=== PATIENT | male | born 1960 | race Caucasian/White ===

== ENCOUNTER 2018-02-10 02:27 | Inpatient (IN) | payer MEDICARE, MEDICAID ==
[2018-02-10] MEDS ORDERED: ASPIRIN 81 MG TABLET, CHEWABLE PO ONE (03:05)
[2018-02-10 03:22] LABS: ABSOLUTE LYMPHOCYTES (AUTO) 1.4 10^3/uL (0.5-4.7); ABSOLUTE MONOCYTES (AUTO) 0.5 10^3/uL (0.1-1.4); ABSOLUTE NEUT (AUTO) 7.8 10^3/uL (1.7-8.2); BASOPHILS % (AUTO) 0.2 % (0-2); EOSINOPHILS % (AUTO) 0.1 % (0-6); HEMATOCRIT 50.1 % (37.9-51.0); HEMOGLOBIN 16.9 g/dL (13.5-17.0); LYMPHOCYTES % (AUTO) 14.6 % (13-45); MEAN CORPUSCULAR HEMOGLOBIN 29.6 pg (27.0-33.4); MEAN CORPUSCULAR HGB CONC 33.8 g/dL (32.0-36.0); MEAN CORPUSCULAR VOLUME 88 fl (80-97); MONOCYTES % (AUTO) 5.2 % (3-13); PLATELET COUNT 188 10^3/uL (150-450); RED BLOOD COUNT 5.72 10^6/uL (4.35-5.55); RED CELL DISTRIBUTION WIDTH 13.9 % (11.5-14.0); SEGMENTED NEUTROPHILS % (AUTO) 79.9 % (42-78); TOTAL CELLS COUNTED % (AUTO) 100 %; WHITE BLOOD COUNT 9.7 10^3/uL (4.0-10.5)
[2018-02-10 03:31] LABS: ALANINE AMINOTRANSFERASE 26 U/L (21-72); ALKALINE PHOSPHATASE 69 U/L (38-126); ANION GAP 16 (5-19); ASPARTATE AMINO TRANSFERASE 24 U/L (17-59); BILIRUBIN,DIRECT 0.5 mg/dL (0.0-0.4); BILIRUBIN,TOTAL 0.8 mg/dL (0.2-1.3); BLOOD UREA NITROGEN 20 mg/dL (7-20); CALCIUM 10.3 mg/dL (8.4-10.2); CARBON DIOXIDE 28 mmol/L (22-30); CHLORIDE 103 mmol/L (98-107); GLUCOSE 132 mg/dL (75-110); POTASSIUM 4.6 mmol/L (3.6-5.0); SODIUM 147.2 mmol/L (137-145); TOTAL PROTEIN 8.4 g/dL (6.3-8.2)
--- NOTE | 2018-02-10 03:36 | RADIOLOGY REPORT (SQ) ---
Chest single view on 02/10/2018 at 3:23 AM CLINICAL INDICATION: Chest pain COMPARISON: None FINDINGS: There is minimal linear atelectasis or scarring in the left lung base. The lungs are otherwise clear. Cardiac, hilar and mediastinal contours are within normal limits. Pulmonary vascularity is within normal limits. IMPRESSION: No acute disease.
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
[2018-02-10] MEDS ORDERED: NITROGLYCERIN 2% OINTMENT 1 GM PACKET TP ONE (04:02)
[2018-02-10] MEDS ORDERED: ENOXAPARIN SODIUM INJ 100 MG/1 ML DISP.SYRIN SUBCUT SCH (04:15)
[2018-02-10 04:21] LABS: APPEARANCE,URINE CLEAR; BILIRUBIN,URINE NEGATIVE (NEGATIVE); COLOR,URINE STRAW; GLUCOSE, URINE NEGATIVE (NEGATIVE); KETONES,URINE NEGATIVE (NEGATIVE); LEUKOCYTE ESTERASE,URINE NEGATIVE (NEGATIVE); NITRITE,URINE NEGATIVE (NEGATIVE); PROTEIN,URINE NEGATIVE (NEGATIVE); URINE SPECIFIC GRAVITY 1.011; UROBILINOGEN,URINE NEGATIVE mg/dL (<2.0)
[2018-02-10] MEDS ORDERED: LOSARTAN POTASSIUM 25 MG TABLET PO ONE (04:34)
[2018-02-10] MEDS ORDERED: SIMVASTATIN 40 MG TABLET PO ONE (04:34)
[2018-02-10] MEDS ORDERED: NITROGLYCERIN 0.4 MG/TAB 25 TAB/BOTTLE SL PRN (04:40)
[2018-02-10] MEDS ORDERED: DIAZEPAM 5 MG TABLET PO PRN (04:40)
[2018-02-10] MEDS ORDERED: MORPHINE SULFATE 10 MG/ML INJ IV PRN (04:40)
[2018-02-10 05:00] LABS: CHOLESTEROL 201.68 mg/dL (0-200); CREATINE KINASE 66 U/L (55-170); TRIGLYCERIDES 106 mg/dL (<150)
[2018-02-10 05:11] LABS: DIRECT LDL 127 mg/dL (<100)
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
--- NOTE | 2018-02-10 09:10 | EKG REPORT ---
SEVERITY:- ABNORMAL ECG - SINUS RHYTHM LEFT ANTERIOR FASCICULAR BLOCK BORDERLINE PROLONGED QT INTERVAL : Confirmed by: Thais Barclay 10-Feb-2018 09:09:44
[2018-02-10] MEDS ORDERED: LOSARTAN POTASSIUM 25 MG TABLET PO SCH (10:00)
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
[2018-02-10 10:25] LABS: CREATINE KINASE MB 3.49 ng/mL (<4.55)
[2018-02-10 10:31] LABS: TROPONIN I 1.02 ng/mL
--- NOTE | 2018-02-10 10:58 | Progress Note ---
Provider Note Provider Note: Case discussed with Dr King at [facility] and pt accepted for transfer for NSTEMI for invasive coronary work up in view of uptrending cardiac biomarkers.
[2018-02-10 11:40] VITALS: BP 118/77
--- NOTE | 2018-02-10 13:36 | PDOC TRANSFER SUMMARY ---
General Admission Date/PCP: 02/10/18 04:44 DIONICIO EDWARDS MD Resuscitation Status: Full Code - Transfer Medications Home Medications: Meloxicam [Mobic] 7.5 mg PO Q12 02/10/18 Oxycodone HCl/Acetaminophen [Endocet 5-325 Tablet] 1 tab PO Q8 02/10/18 Transfer Medications: Current Medications Atorvastatin Calcium (Lipitor 80 Mg Tablet) 80 mg PO QHS AMAN Stop: 03/12/18 21:59 Diazepam (Valium 5 Mg Tablet) 5 mg PO Q6HP PRN PRN Reason: ANXIETY Stop: 02/17/18 04:39 Enoxaparin Sodium (Lovenox Inj 100 Mg/1 Ml Disp.Syrin) 85 mg SUBCUT Q12 AMAN Stop: 03/12/18 04:14 Last Admin: 02/10/18 04:18 Dose: 85 mg Losartan Potassium (Cozaar 25 Mg Tablet) 25 mg PO Q12 AMAN Stop: 03/12/18 09:59 Last Admin: 02/10/18 09:26 Dose: 25 mg Morphine Sulfate (Morphine 10 Mg/Ml Inj) 5 mg IV Q4HP PRN PRN Reason: pain if not relieved by nitro Stop: 02/17/18 04:39 Nitroglycerin (Nitrostat 0.4 Mg (1/150 Gr) Tabs 25/Bottle) 1 tab SL Q5MP PRN PRN Reason: FOR CHEST PAIN Sodium Chloride (Saline Flush 2.5 Ml Monoject Prefil Syrin) 2.5 ml IV Q8 AMAN Stop: 03/12/18 05:59 Last Admin: 02/10/18 13:16 Dose: Not Given - Allergies Allergies/Adverse Reactions: No Known Allergies Allergy (Unverified 06/25/13 15:07) Hospital Course Hospital Course: The pt 57 years old male with PMH of hyperlipidemia, smoking. Came to ER with c /o CP radiated to left arm. ERK was unremarkble.Inintial troponin was negative but second set is positive. Pt continue to have a chest pain. Treated with lovenox full dose, ASA , statin and nitroglycerine. Seen by cardilogist who recommended pt to be transfer to tertiary center for cardiac cath and possible intervention. [facility] contacted and pt accepted. Physical examination upon discharge were unremarkable Pt will be transfer today to tertiary center Reason for transfer : Patient needs a cardiac catheterization and possible intervention Physical Exam Vital Signs: Temp Pulse Resp BP Pulse Ox 97.3 F 64 18 118/77 96 02/10/18 11:36 02/10/18 11:36 02/10/18 11:36 02/10/18 11:36 02/10/18 11:36 Intake & Output 02/09/18 02/10/18 02/11/18 06:59 06:59 06:59 Intake Total 100 Balance 100 Weight 84.2 kg Results Laboratory Results: 02/10/18 09:00 CK-MB (CK-2) 3.49 Troponin I 1.020 Impressions: Chest X-Ray 02/10/18 03:05 IMPRESSION: No acute disease.
--- NOTE | 2018-02-10 14:17 | TRANSFER SUMMARY E ---
Transfer Summary NAME: ETHAN MENG : 1960 AGE: 57Y ADMITTED: 02/10/2018 TRANSFERRED: 02/10/2018 ADMISSION DIAGNOSES: 1. Non-ST elevation myocardial infarction (Non-STEMI). 2. Hypertension. 3. Tobacco abuse. DISCHARGE DIAGNOSES: 1. Non-ST elevation myocardial infarction (Non-STEMI). 2. Tobacco abuse. CONSULTATIONS: Cardiology consult, Dr. Thais Barclay. IMAGING STUDIES: Chest x-ray unremarkable. HOSPITAL COURSE: The patient is a pleasant 67-year-old male who has a past medical history of chronic cigarette smoking, a half a pack a day, hypertension. He came to the emergency room complaining of chest pain; ongoing chest pain, on and off, for the last week with radiation down to the left arm and left hand. The patient could not sleep last night, because of pain and then he decided to come to the emergency room. EKG did not show any signs of change, however, his troponin initially was negative and now his *------* creatinine is positive. Cardiology was consulted and recommendation is to transfer him for cardiac cath. He will be transferred to [facility]. The patient here treated with Lovenox full dose, morphine, nitroglycerine is started. TRANSFER INSTRUCTIONS: 1. Transfer the patient to [facility]. 2. Diet; cardiac diet. 3. Activity; bedrest. 4. Medications; we will continue the same medications. Lovenox 1 mg/kg twice a day, losartan 25 mg twice a day, morphine, nitroglycerine, aspirin, Lipitor 80 mg p.o. daily. CODE STATUS: Full code. DICTATING PHYSICIAN: GRZEGORZ CONDE M.D. [id number] [id number] ID: [id number] JOB#: [id number] ACCT: [id number] cc:GRZEGORZ CONDE M.D. >
--- NOTE | 2018-02-10 21:57 | PROGRESS NOTE E ---
Progress Note NAME: ETHAN MENG : 1960 AGE: 57Y DATE: 02/10/2018 ROOM: 326 SUBJECTIVE: The patient is a 57-year-old male who has a past medical history of hypertension without treatment for 6 years. The patient admitted with retrosternal chest pain. He has continued to have chest pain. OBJECTIVE: GENERAL: The patient is lying in bed, not in distress. VITAL SIGNS: Temperature 97.6, heart rate 59, blood pressure 127/79, saturation 96% room air. HEENT: Head normocephalic, atraumatic. Pupils round, reactive to light and accommodation bilaterally. Extraocular movements intact. Ears: Tympanic membranes intact bilaterally. No discharge from the ear. No discharge from the nose. NECK: Supple, no increased JVD, no thyromegaly, no lymphadenopathy. CARDIOVASCULAR: Normal S1, S2. Regular rate and rhythm. No murmur, no gallop. RESPIRATORY: Lungs clear. ABDOMEN: Soft, nontender. MUSCULOSKELETAL: No edema. NEUROLOGIC: Awake, alert. SKIN: No rash. LABORATORY DATA: White blood count 9.7, hemoglobin 16.9, hematocrit 50. Sodium 147, potassium 4.6, creatinine is 1.1. Troponin is 0.14, increased to 1.5. Cholesterol is 201. ASSESSMENT AND PLAN: 1. NON-STEMI. Continue aspirin, statin, Lovenox full dose, losartan. 2. HYPERTENSION, CONTROLLED. He is on losartan. 3. HYPERLIPIDEMIA. Continue statin. Cardiology on board. MEDICAL NECESSITY: The patient needs to stay for ongoing treatment for ongoing chest pain. TIME SPENT: Twenty-five minutes. DICTATING PHYSICIAN: GRZEGORZ CONDE M.D. [id number] PHY#: [id number] ID: [id number] JOB#: [id number] ACCT: [id number] cc: >
[2018-02-10] MEDS ORDERED: ATORVASTATIN CALCIUM 80 MG TABLET PO SCH (22:00)
== END 2018-02-10 14:32 | disposition short-term general hospital (02) | DRG 282 ==
LOC: ER 02:27 → EH 04:40 → INTOOBSV 04:44 → UNDOADMOB 04:44 → OBSVTOIN 04:44 → 3S 06:05
PROVIDERS: ADMIT Internal Medicine; ATTEND Internal Medicine
DX: I21.4 Non-ST elevation (NSTEMI) myocardial infarction (principal); I10 Essential (primary) hypertension; F17.210 Nicotine dependence, cigarettes, uncomplicated; M19.019 Primary osteoarthritis, unspecified shoulder; E78.00 Pure hypercholesterolemia, unspecified; Z79.899 Other long term (current) drug therapy; Z82.49 Family history of ischemic heart disease and other diseases of the circulatory system; Z83.3 Family history of diabetes mellitus
CPT/HCPCS: 36415; 71045; 80053; 80061; 81001; 82550; 82553; 84484; 85025; 93005; 93010; 96372; 99285; J1650